=== PATIENT | female | born 1990 | race Caucasian/White ===

== ENCOUNTER → 2017-09-10 08:58 | Outpatient (CLI) | payer MEDICAID ==
[2014-04-07 22:28] VITALS: BMI 21.6
[~2017-09-10 08:58] MED LIST: IBUPROFEN600 MG PO; PERCOCET 5-3251 TAB PO; PRENATAL COMPLE1 TAB PO
== END | disposition home or self-care (01) ==
LOC: D.LDO 08:58
DX: O26.893 Other specified pregnancy related conditions, third trimester (principal); Z3A.35 35 weeks gestation of pregnancy; W19.XXXA Unspecified fall, initial encounter; Y93.89 Activity, other specified; Y92.019 Unspecified place in single-family (private) house as the place of occurrence of the external cause

== ENCOUNTER 2017-09-26 14:24 | Inpatient (IN) | payer MEDICAID ==
[~2017-09-26] VITALS: Ht 157.5 cm; Wt 55.3 kg
[2017-09-26] VITALS (10 sets, daily range): BP systolic 94–118; BP diastolic 51–75; Ht 157.5 cm; Wt 55.3 kg
--- NOTE | ~2017-09-26 | OP ---
PATIENT NAME: CHRIS GHOSH MEDICAL RECORD: [id number] :92 LOCATION:[id number] ADMISSION DATE:09/26/17 SURGEON: VIET HERNANDEZ MD DATE OF OPERATION: 09/26/2017 PREOPERATIVE DIAGNOSES: 1. Spontaneous rupture of membranes at term. 2. History of previous section. POSTOPERATIVE DIAGNOSES: 1. Spontaneous rupture of membranes at term. 2. History of previous section. PROCEDURE: Repeat low transverse section via Pfannenstiel skin incision. SURGEON: Viet Hernandez MD ESTIMATED BLOOD LOSS: 1000 cc. INTRAVENOUS FLUIDS: Per anesthesia record. SPECIMENS: Placenta and cord for gases. FINDINGS: 1. Viable female , Apgars 9 at 1 and 9 at 5. 2. Placenta delivered manually intact, 3-vessel cord noted. 3. Grossly normal adnexa bilaterally. COMPLICATIONS: None apparent. PROCEDURE IN DETAIL: The patient was taken to the operating room where regional anesthesia was achieved without difficulty. The patient prepped and draped in normal sterile fashion in the dorsal supine position. SCDs were on and functioning appropriately. A catheter was placed and the bladder was draining freely. Following prepping and draping, a Pfannenstiel skin incision was made, extended downward to the underlying subcutaneous fat to level of the fascia, which was then excised in the midline and extended bilaterally using the Gillis scissors. Superior and inferior aspects of the fascial incision were grasped with Mariam clamps times 2, tented upward, and sharply dissected from the underlying rectus muscle using the Gillis scissors and the Bovie cautery. Rectus muscles were then bluntly in the midline and the peritoneum entered sharply at the superior aspect of the incision using the Metzenbaum scissors. Upon intraperitoneal placement, further dissection of the peritoneum inferiorly and laterally was performed with the Metzenbaum scissors. Several areas of adhesion were lysed involving the bladder and lower uterine segment. A bladder blade was placed into the pelvis and a low transverse incision was made in the uterus and extended superiorly and inferiorly using the Pelosi method. At this point, the vertex was noted to be extended and a vacuum was placed on occiput causing correction to head flexion and immediate delivery of the vertex. The vacuum was immediately removed with no evidence of trauma. No pop offs, no traction placed on the neck. The infant was then delivered atraumatically. was bulb suctioned. Cord was clamped times 2, cut, and the infant was handed to awaiting nursery team. Cord was then obtained for gases and the uterus was exteriorized. The placenta removed manually intact, OPERATIVE REPORT [id number] CHRIS GHOSH 3-vessel cord was noted. Following a vigorous massage, good uterine tone was noted. The uterine incision was repaired with 0 Vicryl in a running locked fashion times 2 with good hemostasis noted. Posterior cul-de-sac was then thoroughly irrigated and uterus was placed into the pelvis. Good hemostasis was again noted from the uterine incision and the anterior cul-de-sac was then thoroughly irrigated. Counts were correct times 2 for sponges, instruments, and needles. The fascia was then repaired with 0 loop PDS and the skin repaired with carlito. The patient tolerated procedure well and was transferred to postanesthesia recovery stable without incident. TRANSINT:[id number] Voice Confirmation ID: [id number] DOCUMENT ID: [id number] VIET HERNANDEZ MD at 1126 CC: [id number] DICTATION DATE: 10/26/17 0713 FRENCH COMBER: 10/26/17 1131 DIS IN 09/28/17 [facility] [address] [place] [address]
[2017-09-26 14:56] LABS: HEMATOCRIT 31.8 % (36.0-48.0); HEMOGLOBIN 10.4 g/dL (12-16); MCH 26.7 pg (26.0-34.0); MCHC 32.7 g/dL (31.0-37.0); MCV 81.7 fL (80.0-100.0); MEAN PLATELET VOLUME 10.7 fL (7.4-10.4); RBC 3.89 10x6/uL (4.00-5.40); RDW 13.5 % (11.5-14.5); WBC 16.7 10x3/uL (4.8-10.8)
[2017-09-26] MEDS ORDERED: STOOL SOFTNERS (15:02)
[2017-09-26] MEDS ORDERED: PEPTO-BISM525 MG/15 (15:03)
[2017-09-26 15:05] LABS: APPEARANCE HAZY (CLEAR); BILIRUBIN NEGATIVE (NEGATIVE); COLOR YELLOW (YELLOW); GLUCOSE NEGATIVE (NEGATIVE); KETONE SMALL mg/dL (NEGATIVE); NITRITE NEGATIVE (NEGATIVE); PROTEIN TRACE mg/dL (NEGATIVE); SPECIFIC GRAVITY 1.015 (1.005-1.020); UROBILINOGEN NORMAL (NORMAL)
[2017-09-26 15:12] LABS: BACTERIA FEW /hpf (NONE SEEN); RED CELLS - URINE 25-50 /hpf (0-5); WHITE CELLS - URINE OCC /hpf (0-5)
[2017-09-26 21:13] LABS: BASOPHILS 0.1 % (0-2); EOSINOPHILS 0.1 % (0-7); HEMATOCRIT 29.8 % (36.0-48.0); HEMOGLOBIN 9.4 g/dL (12-16); IMMATURE GRANULOCYTES 0.5 % (0-5); LYMPHOCYTES 11.5 % (15-50); MCH 26.1 pg (26.0-34.0); MCHC 31.5 g/dL (31.0-37.0); MCV 82.8 fL (80.0-100.0); MEAN PLATELET VOLUME 10.4 fL (7.4-10.4); MONOCYTES 4.2 % (2-11); NEUTROPHILS 83.6 % (40-80); PLATELET COUNT 125 10x3/uL (130-400); RDW 13.4 % (11.5-14.5); WBC 19.3 10x3/uL (4.8-10.8)
[2017-09-27] VITALS (7 sets, daily range): BP systolic 98–145; BP diastolic 53–86
[2017-09-27 06:19] LABS: BASOPHILS 0.1 % (0-2); EOSINOPHILS 0.4 % (0-7); HEMOGLOBIN 9.3 g/dL (12-16); IMMATURE GRANULOCYTES 0.4 % (0-5); LYMPHOCYTES 11.5 % (15-50); MCH 26.3 pg (26.0-34.0); MCHC 32.1 g/dL (31.0-37.0); MCV 82.2 fL (80.0-100.0); MEAN PLATELET VOLUME 10.3 fL (7.4-10.4); NEUTROPHILS 81.6 % (40-80); PLATELET COUNT 113 10x3/uL (130-400); RBC 3.53 10x6/uL (4.00-5.40); RDW 13.6 % (11.5-14.5); WBC 14.6 10x3/uL (4.8-10.8)
[2017-09-28 01:39] VITALS: BP 90/56
[2017-09-28 05:11] VITALS: BP 92/54
[2017-09-28] MEDS ORDERED: HYDROCODONE-APA1 TAB PO (07:31)
[2017-09-28] MEDS ORDERED: IBUPROFEN600 MG PO (07:43)
[2017-09-29 07:27] LABS: RAPID PLASMA REAGIN Non Reactive (Non Reactive)
== END 2017-09-28 14:00 | disposition home or self-care (01) | DRG 766 ==
LOC: D.LD 14:24
PROVIDERS: Obstetrics & Gynecology
PROC: 10D00Z1 Extraction of Products of Conception, Low, Open Approach (ICD-10-PCS; principal; 2017-09-26 15:57)
DX: O41.03X0 Oligohydramnios, third trimester, not applicable or unspecified (principal); Z3A.38 38 weeks gestation of pregnancy; Z37.0 Single live birth; O34.219 Maternal care for unspecified type scar from previous cesarean delivery